=== PATIENT | female | born 1970 | race African-American/Black ===

== ENCOUNTER → 2017-07-31 | Outpatient (CLI) | payer OTHER, MEDICAID ==
[~2017-07-31] MED LIST: ALBU0.63 NEB; COLA100C PO; DULE100A INH; FERR325T8 PO; IBUP-232 PO; MELA1CHW3 CHEW; OXYC1TAB63 PO; POTA10CA PO; SPIR50TA PO; TRIA37.5 PO; VENTAER INH
[2017-07-31 14:34] LABS: BACTERIA, URINE RARE /hpf; BLOOD, URINE NEG (NEG); GLUCOSE,URINE TRACE mg/dL (NEG); KETONE, URINE NEG (NEG); MUCUS URINE FEW /lpf (OCC); NITRITE,URINE NEG (NEG); PH, URINE 5.5 (5.0-8.5); SQUAMOUS EPITHELIAL CELL URINE <1 /hpf (0-5); URINE COLOR YELLOW (YELLW/STRAW)
[2017-07-31 14:37] LABS: AUTOMATED NEUTROPHIL # 7.1 TH/MM3 (1.8-7.7); BASOPHIL # 0.1 TH/MM3 (0-0.2); BASOPHIL % 0.7 % (0.0-2.0); EOSINOPHIL # 0.5 TH/MM3 (0-0.4); EOSINOPHIL % 4.7 % (0.0-4.0); HEMATOCRIT 33.7 % (35.0-46.0); HEMO FLAGS DIFF FINAL; LYMPHOCYTE # 2.4 TH/MM3 (1.0-4.8); MEAN CELL VOLUME 82.1 FL (80.0-100.0); MEAN CORPUSCULAR HEMOGLOBIN 26.3 PG (27.0-34.0); MEAN CORPUSCULAR HGB CONC 32.1 % (32.0-36.0); MONO % 5.2 % (0.0-8.0); NEUT % 66.4 % (16.0-70.0); PLATELET COUNT 360 TH/MM3 (150-450); RED BLOOD COUNT 4.11 MIL/MM3 (4.00-5.30); RED CELL DISTRIBUTION WIDTH 15.4 % (11.6-17.2); WHITE BLOOD COUNT 10.6 TH/MM3 (4.0-11.0)
[2017-07-31 14:53] LABS: ANION GAP 7 MEQ/L (5-15); BICARBONATE 26.9 MEQ/L (21.0-32.0); BLOOD UREA NITROGEN 8 MG/DL (7-18); CHLORIDE 105 MEQ/L (98-107); GLOMERULAR FILTRATION RATE 87 ML/MIN (>89); GLUCOSE,FASTING 207 MG/DL (74-99); POTASSIUM 3.5 MEQ/L (3.5-5.1); SODIUM (NA) 139 MEQ/L (136-145)
[2017-07-31 15:15] LABS: BHCG SCREEN QUALITATIVE LESS THAN 1 MIU/ML (0-5)
== END ==
LOC: CPRE 13:21
PROVIDERS: ATTEND Obstetrics & Gynecology
DX: Z01.812 Encounter for preprocedural laboratory examination (principal); D25.9 Leiomyoma of uterus, unspecified
CPT/HCPCS: 36415; 80048; 81001; 84703; 85025

== ENCOUNTER → 2017-08-02 | Outpatient (CLI) | payer OTHER, MEDICAID ==
[2017-08-02 13:40] LABS: GLUCOSE,FASTING 132 MG/DL (74-99)
[2017-08-02 17:16] LABS: HEMOGLOBIN A1b 2.1 %; HEMOGLOBIN Ao 82.6 %; HEMOGLOBIN LA1C 2.3 %; HEMOGLOBIN P3 4.2 %
== END ==
LOC: CLAB 13:03
PROVIDERS: ATTEND Obstetrics & Gynecology
DX: E11.9 Type 2 diabetes mellitus without complications (principal)
CPT/HCPCS: 36415; 82947; 83036

== ENCOUNTER 2017-08-06 06:10 | Inpatient (IN) | payer OTHER, MEDICAID ==
[~2017-08-06] VITALS: Ht 160 cm; Wt 92.3 kg
[~2017-08-06 06:10] MED LIST changes: -COLA100C PO; -IBUP-232 PO; -OXYC1TAB63 PO
[2017-08-06] MEDS ORDERED: CHLORHEXIDINE GLUCONATE 2 % 1 PACK (2 CLOTHS) TOPICAL PRN (06:30)
[2017-08-06] MEDS ORDERED: SODIUM CHLORID 0.9% 500 ML IV PRN (06:30)
[2017-08-06] MEDS ORDERED: ceFAZolin 2 GM PREMIX 50 ML IV SCH (06:30)
[2017-08-06] MEDS ORDERED: INSULIN HUMAN REGULAR 1,000 UNITS/10 ML VIAL SQ PRN (06:30)
[2017-08-06] MEDS ORDERED: METOPROLOL TARTRATE 25 MG TAB PO PRN (06:30)
[2017-08-06] MEDS ORDERED: LACTATED RINGER'S 1000 ML IV PRN (06:30)
[2017-08-06] MEDS ORDERED: POVIDONE IODINE 5% (ANTISEPSIS KIT) 4 APPLICATIONS EACH NARE PRN (06:30)
[2017-08-06] MEDS ORDERED: BUPIVACAINE/EPINEPHRINE 0.5% 50 ML VIAL ONE (07:20)
[2017-08-06] MEDS ORDERED: BUPIVACAINE/EPINEPHRINE 0.25% 50 ML VIAL ONE (07:22)
[2017-08-06 07:30] LABS: BETA HCG QUANT LESS THAN 1 MIU/ML (0-5)
[2017-08-06] MEDS ORDERED: DEXAMETHASONE SOD PHOS 4 MG/ML VIAL ONE (07:48)
[2017-08-06] MEDS ORDERED: MIDAZOLAM HCL 2 MG/2 ML VIAL ONE (07:48)
[2017-08-06] MEDS ORDERED: FAMOTIDINE 20 MG/2 ML VIAL ONE (07:48)
[2017-08-06] MEDS ORDERED: RESP: ALBUTEROL 2.5 MG/3 ML NEB (PRN) ONE (07:52)
[2017-08-06] MEDS ORDERED: KETAMINE HCL 500 MG/5 ML VIAL ONE (10:04)
[2017-08-06] MEDS ORDERED: SUGAMMADEX SODIUM 200 MG/2 ML VIAL IV PUSH ONE ×2 (10:04)
[2017-08-06] MEDS ORDERED: ceFAZolin INJ 1,000 MG VIAL ONE (10:54)
[2017-08-06] MEDS ORDERED: ZOLPIDEM TARTRATE 5 MG TAB PO PRN (11:30)
[2017-08-06] MEDS ORDERED: DEXTROSE 50% IN WATER 50 ML VIAL(D50) IV PRN (11:30)
[2017-08-06] MEDS ORDERED: SODIUM CHLORIDE 0.9% FLUSH 10 ML FLUSH IV FLUSH PRN (11:30)
[2017-08-06] MEDS ORDERED: ONDANSETRON HCL 4 MG/2 ML VIAL IV PUSH PRN (11:30)
[2017-08-06] MEDS ORDERED: ALBUTEROL SULFATE 90 MCG/ACT HFA 8 GM INHALER INH PRN (11:30)
[2017-08-06] MEDS ORDERED: NALOXONE HCL 0.4 MG/ML AMP IV PRN (11:30)
[2017-08-06] MEDS ORDERED: GLUCAGON 1 MG/ML VIAL OTHER PRN (11:30)
[2017-08-06] MEDS ORDERED: diphenhydrAMINE HCL 50 MG/ML VIAL IV PRN (11:30)
[2017-08-06] MEDS ORDERED: *RESP: ALBUTEROL 2.5 MG/3 ML NEB (PRN) PERIprocedural Use ONLY NEB ONE (11:59)
[2017-08-06] MEDS ORDERED: DO NOT ADM ANY ANTICOAGULANT DRUGS PRN (11:59)
[2017-08-06] MEDS ORDERED: PHENYLEPH/NS 1000 MCG/10 ML SYR IV ONE (12:00)
[2017-08-06] MEDS ORDERED: PROPOFOL 200 MG/20 ML AMP IV ONE (12:00)
[2017-08-06] MEDS ORDERED: NORMOSOL R INJ 1,000 ML IV ONE (12:00)
[2017-08-06] MEDS ORDERED: ONDANSETRON HCL 4 MG/2 ML VIAL IV PUSH ONE (12:00)
[2017-08-06] MEDS ORDERED: KETOROLAC TROMETHAMINE 60 MG/2 ML (IM) VIAL IM ONE (12:00)
[2017-08-06] MEDS ORDERED: *LABETALOL HCL 100 MG/20 ML VIAL PERIprocedural Use ONLY ONE (12:16)
[2017-08-06] MEDS ORDERED: HYDROmorphone HCL PCA 6 MG/30 ML IV SCH (12:30)
[2017-08-06] MEDS: LACTATED RINGER'S 1000 ML INJ 1,000 ML IV SCH ×2 (12:30→20:57)
--- NOTE | 2017-08-06 12:51 | MP ---
cc: KARMA CUELLAR DATE OF SURGERY 08/06/2017 PREOPERATIVE DIAGNOSIS Fibroids, menorrhagia, pelvic pain. POSTOPERATIVE DIAGNOSIS Fibroids, menorrhagia, pelvic pain with extensive adhesions. PROCEDURE Examination under anesthesia, laparoscopic lysis of adhesions, open laparotomy through a previous Pfannenstiel skin incision, extensive lysis of adhesions, supracervical hysterectomy. SURGEON Dr. Cuellar DATA MANAG[employer] Ghazal Camargo ANESTHESIA General endotracheal anesthesia. FLUIDS 1750 cc of crystalloid ESTIMATED BLOOD LOSS 400 cc URINE OUTPUT 250 cc clear yellow at the end of the procedure. FINDINGS Uterus was approximately 14-16 weeks in size. At laparoscopy, multiple adhesions were noted between the omentum to the right of the umbilicus as well as bowel adhesions to the anterior abdominal wall and other omental adhesions in the left lower quadrant to the anterior abdominal wall. The colon was densely adherent to the fundus of the uterus making it impossible to even visualize the uterus at laparoscopy. The tubes and ovaries were also densely adherent to the bowel at open laparotomy. PROCEDURE The patient was taken to the operating room where general anesthesia was found to be adequate. She was then prepped and draped in the normal sterile fashion in the dorsal lithotomy position. A Oneil catheter was inserted into the urinary bladder using sterile technique. A weighted speculum was placed in the vagina. A single-toothed tenaculum applied to the anterior lip of the cervix. A suture was placed through the anterior lip of the cervix. The tenaculum was removed. A medium V-Care uterine manipulator was placed. The balloon was inflated. The cups were positioned. The speculum was removed. The gloves were changed and attention was turned to the abdominal portion of the procedure. A 5-mm incision was made above the umbilicus and a 5-mm trocar and camera were inserted into the abdominal cavity under direct visualization. The abdomen was insufflated with approximately 3-1/2 liter of CO2 gas. A 5-mm incision was made carefully in the right lower quadrant under direct visualization. The 5-mm trocar was placed and the 8 mm Da Bradly trocar was placed in left lower quadrant. The adhesions between the bowel and the anterior peritoneum were lysed with cold scissors carefully. The adhesions in the left lower quadrant between the omentum and anterior abdominal wall were also lysed with cold scissors. The dense omental adhesions just to the right side of the umbilicus were partially lysed with cold scissors enough to maneuver the trocars. At this point, attention was turned to the pelvis. The patient was placed in steep Trendelenburg. The bowel never did move off of the superior portion of the uterus. Instruments were used to probe and grasped the bowel, but it was noted to be densely adherent to the top of the uterus and at this time, the decision was made to open the patient. The trocars were removed. The gas was allowed to escape. The Pfannenstiel skin incision was made with a scalpel through the previous incision and carried down to the underlying layer of fascia. The fascia was nicked in the midline. The incision was extended laterally with Robertson scissors. Attention was turned the inferior aspect of the incision which was grasped with Cindy clamps, elevated and the rectus muscles dissected off sharply. Attention was turned the superior aspect of the incision which was grasped with Cindy clamps, elevated the rectus muscles dissected off sharply. The rectus muscles were noted to be adherent in the midline and Ella clamps were used to elevate the midline at this time and the curved Robertson scissors were used to enter and separate the rectus muscles. Again, Ella clamps were used to elevate the peritoneum and this was entered sharply using the curved Robertson scissors. This incision was extended superiorly and inferiorly with good visualization of the bladder. The bladder blade was inserted. Again, dense adhesions were noted. Moist laparotomy sponges were used to retract the bowel from the superior surface of the uterus. These adhesions were lysed with curved Robertson scissors carefully against the uterine serosa. The uterus was non-mobile really socked into the pelvis. Extensive lysis of adhesions took place between the superior and posterior aspect of the uterus and the bowel adhesions. The bowel was noted to be densely adherent to the left ovary and left fallopian tube, as well as the right ovary and right fallopian tube which appeared benign. Eventually the round ligaments were identified bilaterally, grasped with Ella clamps, transected and suture ligated and this facilitated identification of a tissue plane between the bladder and the anterior surface of the uterus which was also densely adherent. This was dissected down to the level of the cervix. Cindy clamps and Isabelle clamps were placed over the utero-ovarian ligaments and these were transected and suture ligated. Again Cindy clamps and Isabelle clamps were used to clamp the remaining broad ligaments and cardinal ligaments which were transected and suture ligated down to the level of the cervix. The uterus was amputated from the cervix. The Yolto-Care uterine manipulator was removed from the vagina. The gloves were changed. The pedicles were noted to be hemostatic. The cervix was oversewn using multiple interrupted sutures of 0 Vicryl for hemostasis. The pelvis was irrigated and suctioned and hemostasis was noted from all pedicles. The instruments were removed from the pelvis. The fascia was closed in a running fashion with 0 Vicryl. The skin incision was irrigated. The skin was closed with a subcuticular stitch of 4-0 Monocryl on a Waqar needle. The remaining laparoscopic 5 mm incisions were closed using 4-0 Monocryl. The suture was then removed vaginally from the anterior lip of the cervix. The sponge, lap, needle and instrument counts were correct. The patient was awakened from anesthesia and transferred to recovery room in stable condition. Pathology was the uterus. MD TAWANDA Hodge/MARITZA /11:53 AM /12:38 PM ANNIE
[2017-08-06 13:00] VITALS: BP 137/82; PULSE 86; RESP 18; TEMP 97.7; O2SAT 99
[2017-08-06] MEDS ORDERED: ACETAMINOPHEN 1000 MG/100 ML VIAL IV SCH (14:00)
[2017-08-06] MEDS ORDERED: PCA - TOTAL MG DILAUDID DELIVERED PER SHIFT OTHER SCH (14:00)
[2017-08-06] MEDS: INSULIN NovoLIN REGULAR SUPPLEMENTAL SCALE SQ SCH ×2 (14:39→21:30)
[2017-08-06] MEDS ORDERED: DOCUSATE SODIUM 100 MG CAP PO PRN (15:00)
[2017-08-06 16:00] VITALS: PULSE 130; RESP 50; TEMP 98
[2017-08-06] MEDS ORDERED: IBUPROFEN 600 MG TAB PO PRN (16:00)
[2017-08-06 16:12] VITALS: RESP 17
[2017-08-06 18:01] VITALS: BP 142/87; PULSE 101; RESP 20; TEMP 98.1
[2017-08-06] MEDS: RESP: ALBUTEROL 0.63 MG/3 ML NEB (PRN) NEB ×2 (18:56→23:46)
[2017-08-06 20:00] VITALS: BP 133/79; PULSE 98; RESP 18; TEMP 98.1; O2SAT 100
[2017-08-06] MEDS ORDERED: SODIUM CHLORIDE 0.9% FLUSH 10 ML FLUSH IV FLUSH SCH (21:00)
[2017-08-06] MEDS ORDERED: NON-FORMULARY DRUG (Mometasone-Formoterol 120 Act Inh (Dulera 120 Act Inh) 2 PUFF) INH SCH (21:00)
[2017-08-07 02:00] VITALS: BP 123/74; PULSE 97; RESP 15; TEMP 98.4; O2SAT 100
[2017-08-07 05:48] LABS: AUTOMATED NEUTROPHIL # 11.9 TH/MM3 (1.8-7.7); BASOPHIL % 0.3 % (0.0-2.0); EOSINOPHIL % 0.1 % (0.0-4.0); HEMATOCRIT 28.7 % (35.0-46.0); HEMO FLAGS DIFF FINAL; LYMPH % 11.1 % (9.0-44.0); LYMPHOCYTE # 1.7 TH/MM3 (1.0-4.8); MEAN CELL VOLUME 82.3 FL (80.0-100.0); MEAN CORPUSCULAR HEMOGLOBIN 26.3 PG (27.0-34.0); MEAN CORPUSCULAR HGB CONC 31.9 % (32.0-36.0); MONO % 9.3 % (0.0-8.0); NEUT % 79.2 % (16.0-70.0); PLATELET COUNT 315 TH/MM3 (150-450); RED BLOOD COUNT 3.48 MIL/MM3 (4.00-5.30)
[2017-08-07] MEDS ORDERED: oxyCODONE/ACETAMINOPHEN 10 MG/325 MG TAB PO PRN (07:00)
[2017-08-07] MEDS ORDERED: oxyCODONE/ACETAMINOPHEN 5 MG/325 MG TAB PO PRN (07:00)
[2017-08-07] MEDS ORDERED: IBUP-232 PO ×2 (07:46→08:17)
[2017-08-07] MEDS: INSULIN NovoLIN REGULAR SUPPLEMENTAL SCALE SQ SCH (07:50)
--- NOTE | 2017-08-07 08:12 | HHI.PR ---
Subjective Remarks Doing well, pain is well controlled, eating well. Objective Vital Signs Vital Signs Date Time Temp Pulse Resp B/P (MAP) Pulse Ox O2 Delivery O2 Flow Rate FiO2 08/07/17 02:00 98.4 97 15 123/74 (90) 100 08/06/17 20:00 98.1 98 18 133/79 (97) 100 08/06/17 18:56 Nasal Cannula 1.50 08/06/17 18:01 98.1 101 20 142/87 (105) 08/06/17 16:12 17 08/06/17 13:00 97.7 86 18 137/82 (100) 99 08/06/17 12:45 98.8 94 12 152/79 (103) 98 Nasal Cannula 2 08/06/17 12:32 15 08/06/17 12:30 95 13 146/79 (101) 97 Nasal Cannula 3 08/06/17 12:15 116 17 179/86 (117) 100 Nasal Cannula 3 08/06/17 12:00 122 15 185/84 (117) 87 Nasal Cannula 3 08/06/17 11:58 98.3 120 16 181/84 (116) 90 Nasal Cannula 2 I/O 08/06/17 08/06/17 08/06/17 08/07/17 08/07/17 08/07/17 07:00 15:00 23:00 07:00 15:00 23:00 Intake Total 1822 ml 1756 ml Output Total 650 ml 1375 ml Balance 1172 ml 1756 ml -1375 ml Intake Oral 550 ml IV Total 72 ml 1206 ml Other 1750 ml Output Urine Total 250 ml 1375 ml Estimated Blood Loss 400 ml Result Diagram: 08/07/17 0459 08/07/17 0459 Objective Remarks Chest is clear, regular rate and rhythm. Abdomen is soft and non-distended. Incision dressing is clean and dry. Ext no CCE. A/P Assessment and Plan Post Op Day 1 s/p supracervical hysterectomy, extensive JAVIER, laparotomy Doing well Home today and return to office in two weeks. Claire Francis MD Aug 07, 2017 08:12
[2017-08-07] MEDS ORDERED: OXYC1TAB63 PO (08:17)
[2017-08-07] MEDS ORDERED: COLA100C PO (08:17)
--- NOTE | 2017-08-07 08:17 | HHI.DCPOC ---
Discharge Care Plan Your Health Problems Are: Pelvic pain Report Symptoms to Your Doctor -Temperature above 100.5 degrees -Redness, of incision or excessive or foul smelling drainage -Unusual pain or calf pain -Increased vaginal bleeding -Painful or difficulty urinating -Feelings of extreme sadness or anxiety after 2 weeks Goals to Promote Your Health * To prevent worsening of your condition and complications * To maintain your health at the optimal level Directions to Meet Your Goals Take your medications as prescribed Follow your dietary instruction Follow activity as directed Ensure plenty of rest for recovery Drink fluids for hydration Keep your appointments as scheduled Take your immunizations and boosters as scheduled If your symptoms worsen call your PCP, if no PCP go to Urgent Care Center or Emergency Room Smoking is Dangerous to Your Health. Avoid second hand smoke Call the 24-hour crisis hotline for domestic abuse at Claire Francis MD Aug 07, 2017 08:17
[2017-08-07] MEDS: RESP: ALBUTEROL 0.63 MG/3 ML NEB (PRN) NEB (08:56)
[2017-08-07] MEDS ORDERED: POTASSIUM CHLORIDE 10 MEQ CAP PO SCH (09:00)
[2017-08-07] MEDS ORDERED: TRIAMTERENE/HCTZ 37.5 MG/25 MG TAB PO SCH (09:00)
[2017-08-07] MEDS: SPIRONOLACTONE 50 MG TAB PO SCH ×2 (09:00→10:37)
[2017-08-07 10:35] VITALS: BP 142/79; PULSE 98; RESP 18; TEMP 98.2
== END 2017-08-07 13:41 | disposition home or self-care (01) | DRG 743 ==
LOC: HSDC 06:10 → EDUNIT# 08:00 → H1EA 11:40
PROVIDERS: ADMIT Obstetrics & Gynecology; ATTEND Obstetrics & Gynecology
PROC: 0DNW4ZZ Release Peritoneum, Percutaneous Endoscopic Approach (ICD-10-PCS; 2017-08-06)
PROC: 0DNW0ZZ Release Peritoneum, Open Approach (ICD-10-PCS; 2017-08-06)
PROC: 0UT90ZZ Resection of Uterus, Open Approach (ICD-10-PCS; principal; 2017-08-06 08:07)
PROC: 0DNS4ZZ (ICD-10-PCS; 2017-08-06 08:07)
DX: D25.9 Leiomyoma of uterus, unspecified (principal); I10 Essential (primary) hypertension; R10.2 Pelvic and perineal pain; N73.6 Female pelvic peritoneal adhesions (postinfective); N92.0 Excessive and frequent menstruation with regular cycle; Z53.31 Laparoscopic surgical procedure converted to open procedure; D64.9 Anemia, unspecified
CPT/HCPCS: 82565; 82948; 84702; 85025; 86850; 86900; 86901; 88307; 94150; 94640; 94664; J0131; J0690; J1100; J1170; J1885; J2250; J2370; J2405; J3010; J7120; J7613